=== PATIENT | female | born 1975 | race Caucasian/White ===

== ENCOUNTER 2018-09-22 19:25 | Observation (INO) ==
[2018-09-22 20:05] LABS: Microscopic, Urine URINE MICROSCOPIC (MICROSCOPIC)
[2018-09-22 20:15] LABS: Appearance,Urine CLEAR (Clear); Bilirubin,Urine Negative (Negative); Blood, Urine Negative (Negative); Color,Urine YELLOW (Yellow); Glucose,Urine (UA) Negative (Negative); Ketones,Urine 1+ (Negative); Leukocyte Esterase,Urine Negative (Negative); PH,Urine 7.5 (5.0-8.5); Protein,Urine Negative (Negative); Specific Gravity, Urine 1.015 (1.005-1.030); Urobilinogen,Urine 0.2 EU/dl (0.2)
[2018-09-22 20:16] LABS: Basophils % 0.3 % (0.1-2.0); Eosinophils # 0.1 K/mm3 (0.0-0.4); Eosinophils % 0.5 % (0.1-12.0); Hematocrit 37.4 % (37.0-47.0); Hemoglobin 12.4 g/dL (12.2-16.2); Lymphocytes # 1.6 K/mm3 (0.7-4.5); Lymphocytes % 11.7 % (10-50); Mean Corpuscular HGB Conc 33.1 g/dL (31.8-35.4); Mean Corpuscular Volume 79.2 fl (81-99); Mean Platelet Volume 7.4 fl (7.4-10.4); Monocytes # 0.4 K/mm3 (0.1-1.0); Monocytes % 2.5 % (1.7-9.3); Neutrophils # 11.8 K/mm3 (1.8-7.8); Platelet Count 331 K/mm3 (142-424); Red Blood Count 4.73 M/mm3 (4.20-5.40); Red Cell Distribution Width 12.3 % (11.5-17.5); White Blood Count 13.8 K/mm3 (4.8-10.8)
[2018-09-22 20:18] LABS: RBC,Urine Occasional #/hpf (0-3)
[2018-09-22 20:24] LABS: Albumin Level 3.9 gm/dL (3.4-5.0); Albumin/Globulin Ratio 1.1 (1.1-1.8); Anion Gap 16.7 mEq/L (5-15); Bilirubin,Total 0.4 mg/dL (0.2-1.0); Calcium 9.4 mg/dL (8.5-10.1); Globulin 3.7 gm/dl (1.3-3.2); Lymphocytes % 13 % (10-50); Monocytes % 1 % (2-9); Neutrophils % 80 % (42-76); RBC Morphology Normal; Total Cells Counted 100; Total Protein,Serum 7.6 gm/dL (6.4-8.2)
--- NOTE | 2018-09-22 20:32 | Emergency Department Note ---
ED Disposition Clinical Impression: Hemorrhagic cyst of left ovary Disposition: Admitted as Observation Condition on Discharge: Good Referrals: Provider,Referral, [Primary Care Provider] - - Critical Care Critical Care Time: No Attestation: On 09/22/18, the high probability of a clinically significant, sudden or life threatening deterioration of the following system(s) required my full and direct attention, intervention and personal management. The time I documented below is in addition to time spent performing reported procedures but includes the following listed in this critical care notation. Medical Decision Making - Medical Records Medical records reviewed: Yes: I reviewed the patient's medical records. - [place] Inquiry Pt receiving controlled substance: No Vital Signs: 09/22/18 19:39 09/22/18 21:27 09/22/18 22:44 Temperature 98.5 F Temperature Source Oral Pulse Rate [Right] 78 76 69 Respiratory Rate 20 20 18 Blood Pressure [Right Arm] 146/81 H 129/70 142/86 H Blood Pressure Mean [Right Arm] 102 89 104 02 Sat by Pulse Oximetry 100 99 97 Oxygen Delivery Method Room Air - Lab Data Lab results reviewed: Yes: I reviewed the patient's lab results. Lab Results 09/22/18 19:35: Urine Color Yellow, Urine Appearance Clear, Urine pH 7.5, Ur Specific [place] 1.015, Urine Protein Negative, Urine Glucose (UA) Negative, Urine Ketones 1+, Urine Blood Negative, Urine Nitrate Negative, Urine Bilirubin Negative, Urine Urobilinogen 0.2, Ur Leukocyte Esterase Negative, Urine RBC Occasional 09/22/18 19:35: Urine HCG, Qual Negative 09/22/18 19:35: ESR 33 H 09/22/18 19:35: C-Reactive Protein 0.3 09/22/18 19:55: WBC 13.8 H, RBC 4.73, Hgb 12.4, Hct 37.4, MCV 79.2 L, MCH 26.2 L , MCHC 33.1, RDW 12.3, Plt Count 331, MPV 7.4, Neut % (Auto) 85.0 H, Lymph % (Auto) 11.7, [place] % (Auto) 2.5, Eos % (Auto) 0.5, Baso % (Auto) 0.3, Neut # (Auto) 11.8 H, Lymph # (Auto) 1.6, [place] # (Auto) 0.4, Eos # (Auto) 0.1, Baso # (Auto) 0.0, Total Counted 100, Neutrophils % (Manual) 80 H, Band Neutrophils % 6.0, Lymphocytes % (Manual) 13, Monocytes % (Manual) 1 L, Platelet Estimate Normal, RBC Morphology Normal 09/22/18 19:55: Sodium 137, Potassium 3.7, Chloride 100, Carbon Dioxide 24, Anion Gap 16.7 H, BUN 10, Creatinine 0.75, Estimated Creat Clear 150, Estimated GFR 85, Est GFR ( Amer) 103, Glucose 109 H, Calcium 9.4, Total Bilirubin 0.4, AST 15, ALT 27, Alkaline Phosphatase 92, Total Protein 7.6, Albumin 3.9, Globulin 3.7 H, Albumin/Globulin Ratio 1.1, Amylase 52, Lipase 187 Result diagrams: 09/22/18 19:55 09/22/18 19:55 Orders (Tests/Meds): ED MEDICATIONS Generic Name Dose Route Start Last Admin Trade Name Freq PRN Reason Stop Dose Admin Sodium Chloride 1,000 mls @ 999 mls/hr 09/22/18 20:00 09/22/18 20:15 Sod Chlor 0.9% 1000ml Bag IV 09/22/18 21:00 999 mls/hr .[id number] JENNIFER Administration Discontinued Medications Generic Name Dose Route Start Last Admin Trade Name Freq PRN Reason Stop Dose Admin Hydromorphone HCl 1 mg 09/22/18 22:44 09/22/18 22:46 Dilaudid 2mg/Ml Syringe IV 09/22/18 22:45 1 mg ONCE ONE Administration Ketorolac Tromethamine 30 mg 09/22/18 19:57 09/22/18 20:15 Toradol 30mg/Ml Vial IV 09/22/18 19:58 30 mg ONCE ONE Administration Morphine Sulfate 4 mg 09/22/18 21:02 09/22/18 21:04 Morphine 4mg/Ml Syringe IV 09/22/18 21:03 4 mg ONCE ONE Administration Ondansetron HCl 4 mg 09/22/18 19:57 09/22/18 20:15 Zofran 4mg/2ml Vial IV 09/22/18 19:58 4 mg ONCE ONE Administration ORDERS Category Date Time Status CT abdomen pelvis wo con Stat Cat Scan 09/22/18 19:57 Taken US transvaginal Stat Exams 07/21/19 21:27 Taken Diarrhea 23 Panel, PCR Stat Lab 09/22/18 20:44 Ordered - CT Data CT Scan: Abdomen, Pelvis Time Received: 22:[address] Reviewed: Yes: I have viewed the radiologist's interpretation Preliminary Findings: Abnormal (see report -lt hemorrhagic cyst ) - US Data US Images: Pelvis ED US Reviewed: Yes: I discussed the US results w/the radiologist Findings Narrative: no def flow seen - Physician Consults Physician Consulted: agustina Reason -: Admission Nausea/Vomiting/Diarrhea HPI - General Chief complaint: Abdominal Pain Stated complaint: stabbing pain in back nausea Time Seen by Provider: 09/22/18 20:48 Mode of Arrival: Wheelchair Source of Information: Patient, Relative, Medical Record Limitations: No Limitations Description of Symptoms (Recalled from ER Triage Doc. by RN): Pt c/o flank pain all day today, pt denies fever or NVD. - History of Present Illness HPI Narrative: acute onset of lt flank pain with rad to lower abd - no fever or trauma and no rash - MD complaint: nausea, vomiting, abdominal pain Onset (ago): hour(s) Associated Abdominal Pain: Yes Location of pain: flank Severity: severe Consistency: colicky Associated symptoms: denies other symptoms - Related Data Home Medications Medication Instructions Recorded Confirmed No Known Home Medications 09/22/18 09/22/18 Allergies Allergy/AdvReac Type Severity Reaction Status Date / Time No Known Allergies Allergy Unverified 09/18/17 13:13 [facility] History - Hepatitis A Screen Drug use history?: No High risk sexual behaviors?: No History of sexually transmitted infection?: No Currently employed?: No Childcare worker?: No Do you have indoor plumbing?: Yes Do you have electricity?: Yes Attestation statement:: This patient has been screened for Hepatitis A risk factors. I have reviewed the patient's past medical history: Yes Other Surgeries: Yes: No Previous Surgery - Social History Smoking Status: Never smoker Alcohol Intake: never Occupational Status: employed Family Hx:: Non-contributory ROS Obtained: Yes All systems reviewed & no additional complaints - Constitutional Constitutional: Denies fever(s) - Eyes Eyes: Denies change in vision - ENT Ears, Nose, Mouth, and Throat: Denies sore throat - Cardiovascular Cardiovascular: Denies chest pain - Respiratory Respiratory: No cough - Gastrointestinal Gastrointestingal: Reports: as per HPI, abdominal pain, diarrhea, nausea, vomiting - Genitourinary Female Genitourinary: Denies hematuria - Musculoskeletal Musculoskeletal: Denies joint pain - Integumentary/Breasts Skin/Breast: Denies rash - Neurologic Neurologic: Denies seizure-like activity Physical Exam - General General appearance: alert, obese - Head Head exam: normocephalic - Eye Eye exam: Present: PERRL, EOMI. Absent: scleral icterus - ENT ENT exam: Present: mucous membranes dry - Neck Neck exam: Present: trachea midline - Respiratory Respiratory exam: Absent: respiratory distress - Cardiovascular Cardiovascular exam: Present: regular rate - Abdominal Exam Abdominal exam: Present: soft, tenderness. Absent: guarding, rebound, rigidity Abdominal tenderness: Present: moderate - Extremities Exam Extremities exam: Present: full ROM - Back Exam Back exam: Present: CVA tenderness (L). Absent: rashes - Neurological Exam Neurological exam: Present: alert, oriented X3, CN II-XII intact - Psychiatric Psychiatric exam: Present: normal affect - Skin Skin exam: Absent: rash
[2018-09-23 06:51] LABS: Anion Gap 12.9 mEq/L (5-15)
[2018-09-23 07:15] LABS: Basophils % 0.2 % (0.1-2.0); Eosinophils % 0.3 % (0.1-12.0); Hemoglobin 11.4 g/dL (12.2-16.2); Lymphocytes # 1.9 K/mm3 (0.7-4.5); Lymphocytes % 17.5 % (10-50); Mean Corpuscular HGB Conc 31.8 g/dL (31.8-35.4); Mean Corpuscular Volume 81.8 fl (81-99); Mean Platelet Volume 7.6 fl (7.4-10.4); Monocytes # 0.6 K/mm3 (0.1-1.0); Monocytes % 5.5 % (1.7-9.3); Neutrophils # 8.4 K/mm3 (1.8-7.8); Neutrophils % 76.6 % (37.0-80.0); Platelet Count 305 K/mm3 (142-424); Red Cell Distribution Width 12.5 % (11.5-17.5)
[2018-09-23 07:41] LABS: Calcium 8.4 mg/dL (8.5-10.1)
--- NOTE | 2018-09-23 09:11 | History & Physical Report ---
*Admission Date: 09/22/18 *Chief complaint: Severe lower abdominal pain, nausea vomiting *History of present illness: She is a 43-year-old lady who complains of severe lower abdominal pain and flank pain. She said it suddenly started about 1:00 on the afternoon of September 22, 2018. She says the pain was unrelenting and she came into the ER. An ultrasound showed that she had a hemorrhagic cyst and they could not see any flow in the ovary. There was moderate amount of fluid in the cul-de-sac as well. She had a CT scan that essentially showed the same thing. White blood cell count was slightly elevated at 13 hemoglobin was normal. Since she has severe pain we are going to admit her for observation. At this point in time it is not clear whether it is just a hemorrhagic cyst or it could possibly be torsion. [facility] History I have reviewed the patient's past medical history: Yes *Have you ever received a pneumonia vaccine?: No *Have you received a flu vaccine this season?: No Other Surgeries: Yes: No Previous Surgery - *Social History Smoking Status: Never smoker Alcohol Intake: never *Occupational Status:: employed *Travel in the last 8 weeks: None - Psychiatric History Expresses thoughts of harming self/others: None Suicide Plan Description: No Plan Family Hx:: Non-contributory Review of Systems - Review of Systems Review of systems:: pertinent systems reviewed and negative unless documented below - *Neurologic Denies seizure-like activity Meds Home Medications Medication Instructions Recorded Confirmed Type No Known Home Medications 09/22/18 09/22/18 History Allergies Allergy/AdvReac Type Severity Reaction Status Date / Time No Known Allergies Allergy Unverified 09/18/17 13:13 Exam Vital signs and Labs for Last 24 Hours: Temp Pulse Resp BP Pulse Ox 98.3 F 72 18 125/69 100 09/23/18 07:31 09/23/18 07:31 09/23/18 07:31 09/23/18 07:31 09/23/18 07:32 Laboratory Results - last 24 hr 09/22/18 19:35: Urine Color Yellow, Urine Appearance Clear, Urine pH 7.5, Ur Specific [place] 1.015, Urine Protein Negative, Urine Glucose (UA) Negative, Urine Ketones 1+, Urine Blood Negative, Urine Nitrate Negative, Urine Bilirubin Negative, Urine Urobilinogen 0.2, Ur Leukocyte Esterase Negative, Urine RBC Occasional 09/22/18 19:35: Urine HCG, Qual Negative 09/22/18 19:35: ESR 33 H 09/22/18 19:35: C-Reactive Protein 0.3 09/22/18 19:55: WBC 13.8 H, RBC 4.73, Hgb 12.4, Hct 37.4, MCV 79.2 L, MCH 26.2 L , MCHC 33.1, RDW 12.3, Plt Count 331, MPV 7.4, Neut % (Auto) 85.0 H, Lymph % (Auto) 11.7, [place] % (Auto) 2.5, Eos % (Auto) 0.5, Baso % (Auto) 0.3, Neut # (Auto) 11.8 H, Lymph # (Auto) 1.6, [place] # (Auto) 0.4, Eos # (Auto) 0.1, Baso # (Auto) 0.0, Total Counted 100, Neutrophils % (Manual) 80 H, Band Neutrophils % 6.0, Lymphocytes % (Manual) 13, Monocytes % (Manual) 1 L, Platelet Estimate Normal, RBC Morphology Normal 09/22/18 19:55: Sodium 137, Potassium 3.7, Chloride 100, Carbon Dioxide 24, Anion Gap 16.7 H, BUN 10, Creatinine 0.75, Estimated Creat Clear 150, Estimated GFR 85, Est GFR ( Amer) 103, Glucose 109 H, Calcium 9.4, Total Bilirubin 0.4, AST 15, ALT 27, Alkaline Phosphatase 92, Total Protein 7.6, Albumin 3.9, Globulin 3.7 H, Albumin/Globulin Ratio 1.1, Amylase 52, Lipase 187 09/23/18 06:07: WBC 11.0 H, RBC 4.40, Hgb 11.4 L, Hct 36.0 L, MCV 81.8, MCH 26.0 L, MCHC 31.8, RDW 12.5, Plt Count 305, MPV 7.6, Neut % (Auto) 76.6, Lymph % (Auto) 17.5, [place] % (Auto) 5.5, Eos % (Auto) 0.3, Baso % (Auto) 0.2, Neut # (Auto) 8.4 H, Lymph # (Auto) 1.9, [place] # (Auto) 0.6, Eos # (Auto) 0.0, Baso # (Auto) 0.0 09/23/18 06:07: Sodium 138, Potassium 3.9, Chloride 104, Carbon Dioxide 25, Anion Gap 12.9, BUN 8, Creatinine 0.65, Estimated Creat Clear 174, Estimated GFR 100, Est GFR ( Amer) 121, Glucose 110 H, Calcium 8.4 L D I & O for Last 24 hours: Intake & Output 09/20/18 09/21/18 09/22/18 09/23/18 11:59 11:59 11:59 11:59 Intake Total 1000 / 1000 Output Total 400 / 400 Balance 600 / 600 Weight 215 lb - Constitutional no acute distress - *Routine HEENT Exam Head: Present: normocephalic Eye: Present: EOMI, PERRL ENT: Present: mucous membranes moist - *Routine Neck Exam Present: supple, full ROM - *Routine Respiratory Exam Absent: accessory muscle use (good air entry bilaterally), wheezes, crackles - *Routine Cardiovascular Exam Present: RRR. Absent: murmur - *Routine Abdominal Exam Present: soft, normoactive bowel sounds. Absent: tenderness, rebound, guarding, mass - *Routine Rectal Exam Patient deferred: visual exam, digital exam - *Routine Exam Patient deferred: external exam, groin exam, perineal exam - *Routine Extremities Exam Present: full ROM. Absent: cyanosis, edema, calf tenderness - *Routine Skin Exam Present: intact (good color) - *Routine Neurological Exam Present: alert, oriented X3 - Routine Psychiatric Exam Present: normal affect Assessment and Plan (1) Pelvic pain Current visit: Yes Status: Acute Category: Medical Code(s): R10.2 - Pelvic and perineal pain (2) Left lower quadrant abdominal pain Current visit: Yes Status: Acute Category: Medical Code(s): R10.32 - Left lower quadrant pain (3) Hemorrhagic cyst of left ovary Current visit: Yes Status: Acute Category: Medical Code(s): N83.202 - Unspecified ovarian cyst, left side - Assessment and plan all Dx Assessment and Plan for all problems:: She is feeling a little better this morning. She is taking Dilaudid 1 mg every 4 hours. She says that when the pain returns is not nearly as bad as it was yesterday. Her white blood cell count is gone down to 11 and her hemoglobin is stable. She also admits to being hungry this morning so we will go ahead and let her eat. We will continue on the assumption that she has a hemorrhagic ovarian cyst and that she seems to be getting better. We will see how she does throughout the rest the morning. If she is doing better by this afternoon we will consider sending her home.
--- NOTE | 2018-09-23 09:13 | Progress Note ---
Internal Medicine - PN: Subj *Date: 09/23/18 *Time: 09:11 Interval history: She is doing better this morning. She is hungry. Her white blood cell count as well as hemoglobin are stable. In fact her white blood cell count is gone from 13 down to 11. She is afebrile. She says that her pain is improved although she is taking Dilaudid. She says it between her pain medicines she is not nearly as uncomfortable as she was prior to coming to the ER. Exam Vital signs and Labs for Last 24 Hours: Temp Pulse Resp BP Pulse Ox 98.3 F 72 18 125/69 100 09/23/18 07:31 09/23/18 07:31 09/23/18 07:31 09/23/18 07:31 09/23/18 07:32 Laboratory Results - last 24 hr 09/22/18 19:35: Urine Color Yellow, Urine Appearance Clear, Urine pH 7.5, Ur Specific [place] 1.015, Urine Protein Negative, Urine Glucose (UA) Negative, Urine Ketones 1+, Urine Blood Negative, Urine Nitrate Negative, Urine Bilirubin Negative, Urine Urobilinogen 0.2, Ur Leukocyte Esterase Negative, Urine RBC Occasional 09/22/18 19:35: Urine HCG, Qual Negative 09/22/18 19:35: ESR 33 H 09/22/18 19:35: C-Reactive Protein 0.3 09/22/18 19:55: WBC 13.8 H, RBC 4.73, Hgb 12.4, Hct 37.4, MCV 79.2 L, MCH 26.2 L , MCHC 33.1, RDW 12.3, Plt Count 331, MPV 7.4, Neut % (Auto) 85.0 H, Lymph % (Auto) 11.7, [place] % (Auto) 2.5, Eos % (Auto) 0.5, Baso % (Auto) 0.3, Neut # (Auto) 11.8 H, Lymph # (Auto) 1.6, [place] # (Auto) 0.4, Eos # (Auto) 0.1, Baso # (Auto) 0.0, Total Counted 100, Neutrophils % (Manual) 80 H, Band Neutrophils % 6.0, Lymphocytes % (Manual) 13, Monocytes % (Manual) 1 L, Platelet Estimate Normal, RBC Morphology Normal 09/22/18 19:55: Sodium 137, Potassium 3.7, Chloride 100, Carbon Dioxide 24, Anion Gap 16.7 H, BUN 10, Creatinine 0.75, Estimated Creat Clear 150, Estimated GFR 85, Est GFR ( Amer) 103, Glucose 109 H, Calcium 9.4, Total Bilirubin 0.4, AST 15, ALT 27, Alkaline Phosphatase 92, Total Protein 7.6, Albumin 3.9, Globulin 3.7 H, Albumin/Globulin Ratio 1.1, Amylase 52, Lipase 187 09/23/18 06:07: WBC 11.0 H, RBC 4.40, Hgb 11.4 L, Hct 36.0 L, MCV 81.8, MCH 26.0 L, MCHC 31.8, RDW 12.5, Plt Count 305, MPV 7.6, Neut % (Auto) 76.6, Lymph % (Auto) 17.5, [place] % (Auto) 5.5, Eos % (Auto) 0.3, Baso % (Auto) 0.2, Neut # (Auto) 8.4 H, Lymph # (Auto) 1.9, [place] # (Auto) 0.6, Eos # (Auto) 0.0, Baso # (Auto) 0.0 09/23/18 06:07: Sodium 138, Potassium 3.9, Chloride 104, Carbon Dioxide 25, Anion Gap 12.9, BUN 8, Creatinine 0.65, Estimated Creat Clear 174, Estimated GFR 100, Est GFR ( Amer) 121, Glucose 110 H, Calcium 8.4 L D I & O for Last 24 hours: Intake & Output 09/20/18 09/21/18 09/22/18 09/23/18 11:59 11:59 11:59 11:59 Intake Total 1000 / 1000 Output Total 400 / 400 Balance 600 / 600 Weight 215 lb - Constitutional no acute distress - *Routine HEENT Exam Head: Present: normocephalic Eye: Present: EOMI, PERRL ENT: Present: mucous membranes moist - *Routine Respiratory Exam Absent: accessory muscle use (good air entry bilaterally), wheezes, crackles - *Routine Cardiovascular Exam Present: RRR. Absent: murmur - *Routine Abdominal Exam Present: soft, normoactive bowel sounds. Absent: tenderness, rebound, guarding, mass Comments: Her abdomen is soft and slightly tender in the left lower quadrant. There are no peritoneal signs. Assessment and Plan (1) Pelvic pain Current visit: Yes Status: Acute Category: Medical Code(s): R10.2 - Pelvic and perineal pain (2) Left lower quadrant abdominal pain Current visit: Yes Status: Acute Category: Medical Code(s): R10.32 - Left lower quadrant pain (3) Hemorrhagic cyst of left ovary Current visit: Yes Status: Acute Category: Medical Code(s): N83.202 - Uns pecified ovarian cyst, left side - Assessment and plan all Dx Assessment and Plan for all problems:: We will plan to feed her this morning and see how she does. If she is doing well later on this afternoon we will consider sending her home to follow-up with me later in the week.
--- NOTE | 2018-09-23 17:35 | Discharge Summary ---
General - General Admission date:: 09/22/18 HPI HPI: She is a 43-year-old lady who complains of severe lower abdominal pain and flank pain. She said it suddenly started about 1:00 on the afternoon of September 22, 2018. She says the pain was unrelenting and she came into the ER. An ultrasound showed that she had a hemorrhagic cyst and they could not see any flow in the ovary. There was moderate amount of fluid in the cul-de-sac as well. She had a CT scan that essentially showed the same thing. White blood cell count was slightly elevated at 13 hemoglobin was normal. Since she has severe pain we are going to admit her for observation. At this point in time it is not clear whether it is just a hemorrhagic cyst or it could possibly be torsion. Objective Vital signs: Temp Pulse Resp BP Pulse Ox 98.5 F 75 20 130/80 100 09/23/18 16:00 09/23/18 16:00 09/23/18 16:00 09/23/18 16:00 09/23/18 16:00 Results Labs on day of discharge: Labs from last 24 hours 09/23/18 09/23/18 09/22/18 06:07 06:07 19:55 WBC 11.0 H RBC 4.40 Hgb 11.4 L Hct 36.0 L MCV 81.8 MCH 26.0 L MCHC 31.8 RDW 12.5 Plt Count 305 MPV 7.6 Neut % (Auto) 76.6 Lymph % (Auto) 17.5 [place] % (Auto) 5.5 Eos % (Auto) 0.3 Baso % (Auto) 0.2 Neut # (Auto) 8.4 H Lymph # (Auto) 1.9 [place] # (Auto) 0.6 Eos # (Auto) 0.0 Baso # (Auto) 0.0 Total Counted Neutrophils % (Manual) Band Neutrophils % Lymphocytes % (Manual) Monocytes % (Manual) Platelet Estimate RBC Morphology ESR Sodium 138 137 Potassium 3.9 3.7 Chloride 104 100 Carbon Dioxide 25 24 Anion Gap 12.9 16.7 H BUN 8 10 Creatinine 0.65 0.75 Estimated Creat Clear 174 150 Estimated GFR 100 85 Est GFR ( Amer) 121 103 Glucose 110 H 109 H Calcium 8.4 L D 9.4 Total Bilirubin 0.4 AST 15 ALT 27 Alkaline Phosphatase 92 C-Reactive Protein Total Protein 7.6 Albumin 3.9 Globulin 3.7 H Albumin/Globulin Ratio 1.1 Amylase 52 Lipase 187 Urine Color Urine Appearance Urine pH Ur Specific [place] Urine Protein Urine Glucose (UA) Urine Ketones Urine Blood Urine Nitrate Urine Bilirubin Urine Urobilinogen Ur Leukocyte Esterase Urine RBC Urine HCG, Qual 09/22/18 09/22/18 09/22/18 19:55 19:35 19:35 WBC 13.8 H RBC 4.73 Hgb 12.4 Hct 37.4 MCV 79.2 L MCH 26.2 L MCHC 33.1 RDW 12.3 Plt Count 331 MPV 7.4 Neut % (Auto) 85.0 H Lymph % (Auto) 11.7 [place] % (Auto) 2.5 Eos % (Auto) 0.5 Baso % (Auto) 0.3 Neut # (Auto) 11.8 H Lymph # (Auto) 1.6 [place] # (Auto) 0.4 Eos # (Auto) 0.1 Baso # (Auto) 0.0 Total Counted 100 Neutrophils % (Manual) 80 H Band Neutrophils % 6.0 Lymphocytes % (Manual) 13 Monocytes % (Manual) 1 L Platelet Estimate Normal RBC Morphology Normal ESR 33 H Sodium Potassium Chloride Carbon Dioxide Anion Gap BUN Creatinine Estimated Creat Clear Estimated GFR Est GFR ( Amer) Glucose Calcium Total Bilirubin AST ALT Alkaline Phosphatase C-Reactive Protein 0.3 Total Protein Albumin Globulin Albumin/Globulin Ratio Amylase Lipase Urine Color Urine Appearance Urine pH Ur Specific [place] Urine Protein Urine Glucose (UA) Urine Ketones Urine Blood Urine Nitrate Urine Bilirubin Urine Urobilinogen Ur Leukocyte Esterase Urine RBC Urine HCG, Qual 09/22/18 09/22/18 19:35 19:35 WBC RBC Hgb Hct MCV MCH MCHC RDW Plt Count MPV Neut % (Auto) Lymph % (Auto) [place] % (Auto) Eos % (Auto) Baso % (Auto) Neut # (Auto) Lymph # (Auto) [place] # (Auto) Eos # (Auto) Baso # (Auto) Total Counted Neutrophils % (Manual) Band Neutrophils % Lymphocytes % (Manual) Monocytes % (Manual) Platelet Estimate RBC Morphology ESR Sodium Potassium Chloride Carbon Dioxide Anion Gap BUN Creatinine Estimated Creat Clear Estimated GFR Est GFR ( Amer) Glucose Calcium Total Bilirubin AST ALT Alkaline Phosphatase C-Reactive Protein Total Protein Albumin Globulin Albumin/Globulin Ratio Amylase Lipase Urine Color Yellow Urine Appearance Clear Urine pH 7.5 Ur Specific [place] 1.015 Urine Protein Negative Urine Glucose (UA) Negative Urine Ketones 1+ Urine Blood Negative Urine Nitrate Negative Urine Bilirubin Negative Urine Urobilinogen 0.2 Ur Leukocyte Esterase Negative Urine RBC Occasional Urine HCG, Qual Negative DS: Diagnosis - Discharge Diagnosis (1) Pelvic pain Status: Acute (2) Left lower quadrant abdominal pain Status: Acute (3) Hemorrhagic cyst of left ovary Status: Acute Discharge Plan - Patient Discharge Instructions Patient Instructions: Acute Abdominal Pain, DI for Ovarian Cyst - Follow up Plan Home Medications: Home Medications Medication Instructions Recorded Confirmed Type No Known Home Medications 09/22/18 09/22/18 History Ondansetron [Zofran 4mg ODT] 4 mg PO Q4HP PRN #30 tab.rapdis 09/23/18 Rx Oxycodone HCl/Acetaminophen 1 - 2 tab PO Q4-6H PRN #30 tab 09/23/18 Rx [Percocet 5/325mg tablet] Prescriptions/Medication Reconciliation: New Oxycodone HCl/Acetaminophen [Percocet 5/325mg tablet] 1 - 2 tab PO Q4-6H PRN #30 tab PRN Reason: Severe Pain Ondansetron [Zofran 4mg ODT] 4 mg PO Q4HP PRN #30 tab.rapdis PRN Reason: Nausea And Vomiting No Action No Known Home Medications
--- NOTE | 2018-09-23 17:38 | Discharge Summary ---
General - General Admission date:: 09/22/18 Discharge date: 09/23/18 HPI HPI: She is a 43-year-old lady who complains of severe lower abdominal pain and flank pain. She said it suddenly started about 1:00 on the afternoon of September 22, 2018. She says the pain was unrelenting and she came into the ER. An ultrasound showed that she had a hemorrhagic cyst and they could not see any flow in the ovary. There was moderate amount of fluid in the cul-de-sac as well. She had a CT scan that essentially showed the same thing. White blood cell count was slightly elevated at 13 hemoglobin was normal. Since she has severe pain we are going to admit her for observation. At this point in time it is not clear whether it is just a hemorrhagic cyst or it could possibly be torsion. Hospital Course Hospital Course: She was observed overnight and throughout the day and she has done well. Her blood counts remained stable. Her pain is reasonably well controlled. She is taking oral Percocet 5 mg every 3-4 hours. She has had some nausea earlier in the day but now is doing well. She is eating and drinking and ambulating. I suspect she had a hemorrhagic ovarian cyst and we will plan to send her home today. She will follow-up with me in 48 hours. Objective Vital signs: Temp Pulse Resp BP Pulse Ox 98.5 F 75 20 130/80 100 09/23/18 16:00 09/23/18 16:00 09/23/18 16:00 09/23/18 16:00 09/23/18 16:00 no acute distress Results Labs on day of discharge: Labs from last 24 hours 09/23/18 09/23/18 09/22/18 06:07 06:07 19:55 WBC 11.0 H RBC 4.40 Hgb 11.4 L Hct 36.0 L MCV 81.8 MCH 26.0 L MCHC 31.8 RDW 12.5 Plt Count 305 MPV 7.6 Neut % (Auto) 76.6 Lymph % (Auto) 17.5 [place] % (Auto) 5.5 Eos % (Auto) 0.3 Baso % (Auto) 0.2 Neut # (Auto) 8.4 H Lymph # (Auto) 1.9 [place] # (Auto) 0.6 Eos # (Auto) 0.0 Baso # (Auto) 0.0 Total Counted Neutrophils % (Manual) Band Neutrophils % Lymphocytes % (Manual) Monocytes % (Manual) Platelet Estimate RBC Morphology ESR Sodium 138 137 Potassium 3.9 3.7 Chloride 104 100 Carbon Dioxide 25 24 Anion Gap 12.9 16.7 H BUN 8 10 Creatinine 0.65 0.75 Estimated Creat Clear 174 150 Estimated GFR 100 85 Est GFR ( Amer) 121 103 Glucose 110 H 109 H Calcium 8.4 L D 9.4 Total Bilirubin 0.4 AST 15 ALT 27 Alkaline Phosphatase 92 C-Reactive Protein Total Protein 7.6 Albumin 3.9 Globulin 3.7 H Albumin/Globulin Ratio 1.1 Amylase 52 Lipase 187 Urine Color Urine Appearance Urine pH Ur Specific [place] Urine Protein Urine Glucose (UA) Urine Ketones Urine Blood Urine Nitrate Urine Bilirubin Urine Urobilinogen Ur Leukocyte Esterase Urine RBC Urine HCG, Qual 09/22/18 09/22/18 09/22/18 19:55 19:35 19:35 WBC 13.8 H RBC 4.73 Hgb 12.4 Hct 37.4 MCV 79.2 L MCH 26.2 L MCHC 33.1 RDW 12.3 Plt Count 331 MPV 7.4 Neut % (Auto) 85.0 H Lymph % (Auto) 11.7 [place] % (Auto) 2.5 Eos % (Auto) 0.5 Baso % (Auto) 0.3 Neut # (Auto) 11.8 H Lymph # (Auto) 1.6 [place] # (Auto) 0.4 Eos # (Auto) 0.1 Baso # (Auto) 0.0 Total Counted 100 Neutrophils % (Manual) 80 H Band Neutrophils % 6.0 Lymphocytes % (Manual) 13 Monocytes % (Manual) 1 L Platelet Estimate Normal RBC Morphology Normal ESR 33 H Sodium Potassium Chloride Carbon Dioxide Anion Gap BUN Creatinine Estimated Creat Clear Estimated GFR Est GFR ( Amer) Glucose Calcium Total Bilirubin AST ALT Alkaline Phosphatase C-Reactive Protein 0.3 Total Protein Albumin Globulin Albumin/Globulin Ratio Amylase Lipase Urine Color Urine Appearance Urine pH Ur Specific [place] Urine Protein Urine Glucose (UA) Urine Ketones Urine Blood Urine Nitrate Urine Bilirubin Urine Urobilinogen Ur Leukocyte Esterase Urine RBC Urine HCG, Qual 09/22/18 09/22/18 19:35 19:35 WBC RBC Hgb Hct MCV MCH MCHC RDW Plt Count MPV Neut % (Auto) Lymph % (Auto) [place] % (Auto) Eos % (Auto) Baso % (Auto) Neut # (Auto) Lymph # (Auto) [place] # (Auto) Eos # (Auto) Baso # (Auto) Total Counted Neutrophils % (Manual) Band Neutrophils % Lymphocytes % (Manual) Monocytes % (Manual) Platelet Estimate RBC Morphology ESR Sodium Potassium Chloride Carbon Dioxide Anion Gap BUN Creatinine Estimated Creat Clear Estimated GFR Est GFR ( Amer) Glucose Calcium Total Bilirubin AST ALT Alkaline Phosphatase C-Reactive Protein Total Protein Albumin Globulin Albumin/Globulin Ratio Amylase Lipase Urine Color Yellow Urine Appearance Clear Urine pH 7.5 Ur Specific [place] 1.015 Urine Protein Negative Urine Glucose (UA) Negative Urine Ketones 1+ Urine Blood Negative Urine Nitrate Negative Urine Bilirubin Negative Urine Urobilinogen 0.2 Ur Leukocyte Esterase Negative Urine RBC Occasional Urine HCG, Qual Negative DS: Diagnosis - Discharge Diagnosis (1) Pelvic pain Status: Acute (2) Left lower quadrant abdominal pain Status: Acute (3) Hemorrhagic cyst of left ovary Status: Acute Discharge Plan - Patient Discharge Instructions ACTIVITY: No heavy lifting DIET: continue same diet Patient Instructions: Acute Abdominal Pain, DI for Ovarian Cyst - Follow up Plan Disposition: Home, Self-Fpc Medications: Home Medications Medication Instructions Recorded Confirmed Type No Known Home Medications 09/22/18 09/22/18 History Ondansetron [Zofran 4mg ODT] 4 mg PO Q4HP PRN #30 tab.rapdis 09/23/18 Rx Oxycodone HCl/Acetaminophen 1 - 2 tab PO Q4-6H PRN #30 tab 09/23/18 Rx [Percocet 5/325mg tablet] Prescriptions/Medication Reconciliation: New Oxycodone HCl/Acetaminophen [Percocet 5/325mg tablet] 1 - 2 tab PO Q4-6H PRN #30 tab PRN Reason: Severe Pain Ondansetron [Zofran 4mg ODT] 4 mg PO Q4HP PRN #30 tab.rapdis PRN Reason: Nausea And Vomiting No Action No Known Home Medications
== END 2018-09-23 18:10 | disposition home or self-care (01) ==
LOC: ER 19:25 → OB 19:25
PROVIDERS: ADMIT Nurse Practitioner Obstetrics & Gynecology; ATTEND Nurse Practitioner Obstetrics & Gynecology
DX: N83.02 Follicular cyst of left ovary; R10.2 Pelvic and perineal pain; R10.32 Left lower quadrant pain
CPT/HCPCS: 36415; 74176; 76830; 80048; 80053; 81001; 81025; 82150; 83690; 85007; 85025; 85651; 86140; 96365; 96375; 99284; G0378; J2405